=== PATIENT | male | born 1960 | race Caucasian/White ===

== ENCOUNTER → 2021-06-30 15:41 | Outpatient (BNVA) | payer BC, SELFPAY | PROVIDERS: Family Provider Family Medicine; Visit Provider Family Medicine | DX: M25.562 Pain in left knee (principal) | CPT/HCPCS: 73562 ==

== ENCOUNTER 2024-02-28 13:09 | Outpatient (CLI) | payer BC, SELFPAY ==
--- NOTE | 2024-02-28 13:18 | XRR_ITS ---
PROCEDURE INFORMATION: Exam: XR Right Shoulder Exam date and time: 02/28/2024 1:23 PM Age: 63 years old Clinical indication: Pain; Shoulder; Right; Additional info: M25.511 - pain in right shoulder TECHNIQUE: Imaging protocol: Radiologic exam of the right shoulder. Views: 2 or more views. COMPARISON: No relevant prior studies available. FINDINGS: Bones/joints: Visualized portions of the clavicle normal. Mild degenerative changes of the acromioclavicular joint. Glenohumeral joint normal. Scapula normal. Visualized ribs and visualized pulmonary parenchyma normal. Coracoid process normal. Suggestion of mild loss of the subacromial space height. Correlate regarding clinical manifestations of rotator cuff pathology. Consider MRI if indicated. Soft tissues: Normal. XR/XR shoulder RT min 2V* [id number] IMPRESSION: 1. Suggestion of mild loss of the subacromial space height. Correlate regarding clinical manifestations of rotator cuff pathology. Consider MRI if indicated. 2. Mild degenerative changes of the acromioclavicular joint.
== END 2024-02-28 13:10 | disposition home or self-care (01) ==
PROVIDERS: PCP Family Medicine; Visit Provider Family Medicine
DX: M25.511 Pain in right shoulder (principal)
CPT/HCPCS: 73030

== ENCOUNTER → 2024-03-06 09:18 | Outpatient (BNVA) | payer BC, SELFPAY | PROVIDERS: PCP Family Medicine; Visit Provider Family Medicine | DX: Z13.6 Encounter for screening for cardiovascular disorders; Z12.5 Encounter for screening for malignant neoplasm of prostate | CPT/HCPCS: 80053; 80061; 84443; 85025; G0103 ==

== ENCOUNTER 2024-03-21 06:00 | Outpatient (RCR) | payer BC, SELFPAY | END 2024-04-09 23:59 | disposition home or self-care (01) | LOC: TPT 06:00 | PROVIDERS: PCP Family Medicine; Visit Provider Family Medicine | DX: M25.511 Pain in right shoulder (principal) | CPT/HCPCS: 97110; 97140; 97162 ==

== ENCOUNTER 2024-04-10 06:00 | Outpatient (RCR) | payer BC, SELFPAY | END 2024-05-10 23:59 | disposition home or self-care (01) | LOC: TPT 06:00 | PROVIDERS: PCP Family Medicine; Visit Provider Family Medicine | DX: M25.511 Pain in right shoulder (principal) | CPT/HCPCS: 97110 ==

== ENCOUNTER 2024-05-11 06:00 | Outpatient (RCR) | payer BC, SELFPAY | END 2024-06-09 23:59 | disposition home or self-care (01) | LOC: TPT 06:00 | PROVIDERS: PCP Family Medicine; Visit Provider Family Medicine | DX: M25.511 Pain in right shoulder (principal) | CPT/HCPCS: 97110 ==

== ENCOUNTER 2024-05-14 06:30 | Day surgery (SDC) | payer BC, SELFPAY ==
[2024-05-14 06:39] VITALS: BMI 33.1
[2024-05-14] MEDS: sodium chloride 0.9% 1,000 ML 30 ML IV (06:46)
[2024-05-14 06:47] VITALS: BP 158/94; PULSE 66; RESP 18; TEMP 36.2; O2SAT 99
--- NOTE | 2024-05-14 07:35 | ANES.PREANE2 ---
Pre-Anesthetic Assessment Height/Weight: Height 1.85 m Weight 113.852 kg Temp Pulse Resp BP Pulse Ox O2 Del Method 97.1 F L 66 18 158/94 99 Room Air 05/14/24 06:47 05/14/24 06:47 05/14/24 06:47 05/14/24 06:47 05/14/24 06:47 05/14/24 06:47 Preop Diagnosis: screening Operation Date: 05/14/24 07:45 Proposed Procedures p Colonoscopy 30190, G0121, Z12.11(Not Applicable) - James Munoz DO Familial anesthetic complications: none Was Beta Darin taken within 24 hours: N/A Was Clonidine taken within 24 hours: N/A Last intake: Intake Last Liquid Date 05/13/24 Last Liquid Time 23:30 Last Solid Date 05/12/24 Social No alcohol and No tobacco Exam alert, oriented x 3, clear to auscultation bilaterally and regular rate & rhythm Airway Submandibular: within normal limits Cervical ROM: within normal limits Mallampati: Class II Dentition: full Pulmonary Sleep Apnea CV/HEM None reported None reported Hepatic None reported GI Gastroesophageal Reflux Disease Metabolic Morbid Obesity [facility] [place] Osteoarthritis/DJD Neuropsych None reported Anesthetic Plan ASA status: 2 Anesthesia: MAC Risk of > 500 ml blood loss (7ml/kg in children): No Medications/Allergies Home Medications Medication Instructions Recorded Confirmed Last Taken Type meloxicam 15 mg tablet 15 mg PO DAILY #30 tabs 02/28/24 05/08/24 05/12/24 Rx Allergies Allergy/AdvReac Type Severity Reaction Status Date / Time No Known Allergies Allergy Verified 05/08/24 09:09 Current Medications Generic Name Dose Route Start Last Admin Trade Name Freq PRN Reason Stop Dose Admin Sodium Chloride 1,000 mls @ 30 mls/hr 05/14/24 06:45 05/14/24 06:46 Sodium Chloride 0.9% IV 05/15/24 06:44 30 mls/hr .Q24H MIGUEL Administration PFSH Anesthesia Social History Smoking and tobacco/nicotine status: former use of tobacco/nicotine Alcohol intake: unknown Substance/Drug Use: never Household members: spouse Marital status: Current occupational status: employed Special zully needs: No Data Anesthesia Cardiac Studies: No Data to Display
--- NOTE | 2024-05-14 07:51 | PM.HP ---
Providers/Chief Complaint Primary Care Provider: Tasneem Saavedra MD Chief Complaint: Z12.11 History of Present Illness Evelyn Matamoros (Robert) is a 63 year old male Review of Systems General: Reports: 10 or more systems reviewed and unremarkable except in HPI and below Medications/Allergies Home Medications Medication Instructions Recorded Confirmed Last Taken Type meloxicam 15 mg tablet 15 mg PO DAILY #30 tabs 02/28/24 05/08/24 05/12/24 Rx Allergies Allergy/AdvReac Type Severity Reaction Status Date / Time No Known Allergies Allergy Verified 05/08/24 09:09 PFSH Acute PFSH: Social History Smoking and tobacco/nicotine status: former use of tobacco/nicotine Alcohol intake: unknown Substance/Drug Use: never Household members: spouse Marital status: Current occupational status: employed Special zully needs: No Vitals/I&O/Wt Last Vital Signs Temp 97.1 F L 05/14/24 06:47 Pulse 66 05/14/24 06:47 Resp 18 05/14/24 06:47 BP 158/94 05/14/24 06:47 Pulse Ox 99 05/14/24 06:47 O2 Del Method Room Air 05/14/24 06:47 Weight last 48 hrs Weight 251 lb A&P Assessment and plan (1) Encounter for screening colonoscopy: Plan Screening colonoscopy Attestations Medical Necessity Statement*: Home Coding Level of Care Code Acute Code for Chg Fwd Diagnoses Encounter for screening colonoscopy Z12.11
[2024-05-14 08:19] VITALS: BP 120/77; PULSE 79; RESP 12; TEMP 36.2; O2SAT 99
[2024-05-14 08:30] VITALS: BP 135/85; PULSE 70; RESP 18; O2SAT 97
--- NOTE | 2024-05-14 08:55 | ANE.PACU2 ---
Inpatient post-anesthesia follow up: Airway intact: Yes Vital signs: Temperature 97.1 F Pulse Rate 70 Respiratory Rate 18 Blood Pressure 135/85 Pulse Oximetry 97 Oxygen Delivery Me thod Room Air Oxygen Flow Rate 2 Fraction of Inspir ed Oxygen Hydration adequate: Yes Nausea and vomiting: No Pain level: 1 Mental status: Baseline
== END 2024-05-14 08:55 | disposition home or self-care (01) ==
PROVIDERS: PCP Family Medicine; Visit Provider Surgery
PROC: 0DJD8ZZ Inspection of Lower Intestinal Tract, Via Natural or Artificial Opening Endoscopic (ICD-10-PCS; CPT 45378; principal; 2024-05-14 07:45)
DX: Z12.11 Encounter for screening for malignant neoplasm of colon (principal); D12.2 Benign neoplasm of ascending colon; K55.20 Angiodysplasia of colon without hemorrhage; Z87.891 Personal history of nicotine dependence; G47.30 Sleep apnea, unspecified; K21.9 Gastro-esophageal reflux disease without esophagitis; E66.01 Morbid (severe) obesity due to excess calories; Z68.33 Body mass index [BMI] 33.0-33.9, adult
CPT/HCPCS: 36415; 45380; 45385; 88305; J2704; J7030

== ENCOUNTER 2024-06-10 06:00 | Outpatient (RCR) | payer BC, SELFPAY | END 2024-06-11 23:59 | disposition home or self-care (01) | LOC: TPT 06:00 | PROVIDERS: PCP Family Medicine; Visit Provider Family Medicine | DX: M25.511 Pain in right shoulder (principal) | CPT/HCPCS: 97110 ==